=== PATIENT | female | born 1965 | race Two or more races ===

== ENCOUNTER 2025-02-25 03:59 | Emergency (ER) | payer MEDICAID ==
[~2025-02-25] VITALS: Ht 157.5 cm; Wt 69.3 kg
[2025-02-25 04:26] VITALS: BP 104/64; PULSE 72; RESP 16; TEMP 98.2; O2SAT 98
[2025-02-25] MEDS ORDERED: COROSUS RIGHT EAR (05:12)
--- NOTE | 2025-02-25 05:12 | ED.PDOC ---
Eye-HPI HPI Comments C/C: RIGHT SIDE EARACHE FOR THE PAST 3 WEEKS. DENIES DRAINAGE BUT STATES THAT S HE HAS MUFFLED HEARING IN THE RIGHT EAR. ALL VSS. A&OX4. DENIES DIZZINESS. Chief Complaint: Earache Time Seen by MD: 04:03 Reviewed Notes: Nurses Notes, Medications, Allergies Home Meds Active Scripts Rnvpqagy-Ozrxhxnxz-Lj (Otic) (Cortisporin Otic Susp) [address], 4 DROP RIGHT EAR TID for 7 Days, #3 ML Prov:VIRIDIANA HECK [employer] 02/25/25 Mode of Arrival: Ambulatory Constitutional: denies: chills, diaphoresis, fatigue, fever, malaise, sweats, weakness, others EENTM: reports: ear pain; denies: blurred vision, double vision, ear bleeding, ear discharge, ear drainage, ear ringing, eye pain, eye redness, hearing loss, mouth pain, mouth swelling, nasal discharge, nose bleeding, nose congestion, nose pain, photophobia, tearing, throat pain, throat swelling, voice changes, others Respiratory: denies: cough, hemoptysis, orthopnea, SOB at rest, shortness of breath, SOB with excertion, stridor, wheezing, others Cardiovascular: denies: chest pain, dizzy spells, diaphoresis, Dyspnea on exertion, edema, irregular heart beat, left arm pain, lightheadedness, palpit ations, PND, syncope, others Gastrointestinal: denies: abdomen distended, abdominal pain, blood streaked b owels, constipated, diarrhea, dysphagia, difficulty swallowing, hematemesis, melena, nausea, poor appetite, poor fluid intake, rectal bleeding, rectal pain, vomiting, others Genitourinary: denies: abnormal vagina bleeding, burning, dyspareunia, dysuria, flank pain, frequency, hematuria, incontinence, pain, , vagina discharge, urgency, others Neurological: denies: dizziness, fainting, headache, left sided numbness, left sided weakness, numbness, paresthesia, pre-existing deficit, right sided numbness, right sided weakness, seizure, speech problems, tingling, tremors, weakness, others Musculoskeletal: denies: back pain, gout, joint pain, joint swelling, muscle pain, muscle stiffness, neck pain, others Integumetry: denies: bruises, change in color, change in hair/nails, dryness, laceration, lesions, lumps, rash, wounds, others Allergic/Immunocompromised: denies: Difficulty Healing, Frequent Infections, Hives, Itching, others Hematologic/Lymphatic: denies: anemia, blood clots, easy bleeding, easy brui sing, swollen glands, others Endocrine: denies: excessive hunger, excessive sweating, excessive thirst, ex cessive urination, flushing, intolerance to cold, intolerance to heat, unexplained weight gain, unexplained weight loss, others Physical Exam General Appearance: No Apparent Distress, Normal HEENT: Pharynx Normal, TMs Normal, Other (RIGHT EAR CANAL EDEMATOUS IN ERYTHEMIC NO NOTED DRAINAGE FOREIGN BODY TM INTACT) Neck: Full Range of Motion, Non-Tender, Normal, Normal Inspection Respiratory: Chest Non-Tender, Lungs Clear, No Accessory Muscle Use, No Respiratory Distress, Normal Breath Sounds Cardiovascular: No Edema, No JVD, No Murmur, No Gallop, Normal Peripheral Pulses, Regular Rate/Rhythm Breast Exam: Deferred Gastrointestinal: No Organomegaly, Non Tender, No Pulsatile Mass, Normal Bowel Sounds, Soft Genitalia: Deferred Pelvic: Deferred Rectal: Deferred Extremities: Normal capillary refill, Normal inspection, Normal range of motion, Non-tender, No pedal edema Musculoskeletal : Apperance: Normal Neurologic: Alert, wardrobe technician II-XII nml as Tested, No Motor Deficits, Normal Affect, Normal Mood, No Sensory Deficits Cerebellar Function: Normal Reflexes: Normal Skin: Dry, Normal Color, Warm Lymphatic: No Adenopathy Was a procedure done? Was a procedure done?: No EENT DIFF Eye: N/A Ear: Cerumen Impaction, Foreign Body, Otitis Externa, Barotrauma, Otitis Media, Perforation X-Ray, Labs, Meds, VS Vital Signs Date Time Temp Pulse Resp B/P (MAP) Pulse Ox O2 Delivery O2 Flow Rate FiO2 02/25/25 04:26 98.2 72 16 104/64 (77) 98 98.2 X-Ray, Labs, Meds, VS Comment LIKELY BACTERIAL SCRIPT CORTISPORIN DROPS ADVISED TAKE MEDICATION PRESCRIBED SIDE EFFECTS DISCUSSED. AVOID UNDER WATER ACTIVITIES WHILE WITH INFECTION. [id number] TYLENOL OR MOTRIN NEEDED FOR THE PAIN PER LABELED DOSING INSTRUCTIONS. FOLLOW UP WITH YOUR PCP WITHIN 1-2 DAYS NECESSARY. ER RETURN PRECAUTIONS GIVEN PATIENT INDICATES UNDERSTANDING AGREES WITH DISCHARGE PLAN OF CARE. Time of 1ST Reevaluation: 05:09 Reevaluation 1ST: Unchanged Patient Education/Counseling: Diagnosis, Treatment, Prognosis, Need For Follow Up Family Education/Counseling: No Family Present Departure 1 Departure Time of Disposition: 05:09 Impression: Primary Impression: Otitis externa Qualified Codes: H60.501 - Unspecified acute noninfective otitis externa, right ear Disposition: HOME / SELF CARE / HOMELESS Condition: Stable e-Prescriptions Imrlolvc-Smsvndiok-Tr (Otic) (Cortisporin Otic Susp) [address] 4 DROP RIGHT EAR TID for 7 Days, #3 ML Prov: VIRIDIANA HECK 02/25/25 Discharged With: Self Critical Care Note Critical Care Time?: No Stability Stability form required: VIRIDIANA Pisano Feb 25, 2025 05:12
== END 2025-02-25 05:44 | disposition home or self-care (01) ==
LOC: ER 03:59
DX: H60.91 Unspecified otitis externa, right ear (principal)